=== PATIENT | male | born 1995 | race Hispanic/Latino ===

== ENCOUNTER 2020-12-27 17:37 | Emergency (ER) | payer SELFPAY ==
[2020-12-27 20:06] LABS: Absolute Lymphocytes (CBC) 3.9 K/uL (0.7-4.9); Basophils % 0.5 % (0-1.3); Hematocrit 46.7 % (39.6-49.0); Lymphocytes % 39.5 % (15.3-44.8); MPV 7.8 fL (7.6-11.3); RBC Red Blood Cell Count 5.47 M/uL (4.33-5.43)
[2020-12-27 20:13] LABS: BUN Blood Urea Nitrogen 17 mg/dL (7-18); Bicarbonate 29 mmol/L (21-32); Glucose Level 97 mg/dL (74-106); Lipase 110 U/L (73-393); Potassium 4.1 mmol/L (3.5-5.1); Sodium Level 143 mmol/L (136-145)
--- NOTE | 2020-12-27 20:21 | RAD REPORT ---
EXAM DESCRIPTION: CT - Head Brain Wo Cont - 12/27/2020 8:06 pm CLINICAL HISTORY: Headache COMPARISON: None. TECHNIQUE: Computed axial tomography of the head was obtained. IV contrast was not requested. All CT scans are performed using dose optimization technique as appropriate and may include automated exposure control or mA/KV adjustment according to patient size. FINDINGS: An intracranial bleed is not seen . The ventricles are normal in caliber. No extra-axial fluid collection is noted. 3 centimeter low-density areas present within the white matter of the right and left frontal lobes. A dditional low-density areas present within the subcortical white matter right frontal lobe. Fluid within the sinuses/ mastoids is not seen. IMPRESSION: Low-density areas within the right frontal lobes bilaterally. This could be a demyelinat ing process or inflammatory in nature. Posttraumatic is another consideration. It is recommended that the patient have an MRI with IV contrast for further evaluation
[2020-12-27] MEDS ORDERED: ONDANSETRON 4 MG/2 ML VIAL ONE (23:37)
[2020-12-27] MEDS ORDERED: MECLIZINE HCL 12.5 MG TAB ONE (23:37)
--- NOTE | 2020-12-27 23:59 | ER ---
Nurse's Notes [facility] Name: Terell Andre Age: 25 yrs Sex: Male : 1995 Arrival Date: 12/27/2020 Time: 17:55 Bed Treatment Private MD: Diagnosis: Headache;Dizziness and giddiness Presentation: 12/27 19:19 Chief complaint: Patient states: headache to right side of head that began 2 days ago. aa5 Pt denies recent illness. Pt reports nausea and vomiting blood. Also reports intermittent dizziness. 19:19 Coronavirus screen: headache, nausea, vomiting. Ebola Screen: Patient negative for aa5 fever greater than or equal to 101.5 degrees Fahrenheit, and additional compatible Ebola Virus Disease symptoms. Initial Sepsis Screen: Does the patient meet any 2 criteria? No. Patient's initial sepsis screen is negative. Does the patient have a suspected source of infection? No. Patient's initial sepsis screen is negative. Risk Assessment: Do you want to hurt yourself or someone else? Patient reports no desire to harm self or others. Onset of symptoms was 2020. 19:19 Method Of Arrival: Ambulatory aa5 19:19 Acuity: ANAND 3 aa5 Historical: - Allergies: 19:22 No Known Allergies; aa5 - Home Meds: 19:22 None [Active]; aa5 - PMHx: 19:22 None; aa5 - PSHx: 19:22 None; aa5 - Immunization history:: Client reports having NOT received the Covid vaccine. - Social history:: Smoking status: Patient reports the use of cigarette tobacco products, denies chronic smoking, but will smoke occasionally. Screenin/05 00:24 Abuse screen: Denies threats or abuse. Denies injuries from another. Nutritional lp1 screening: No deficits noted. Tuberculosis screening: No symptoms or risk factors identified. Fall Risk None identified. Assessment: 00:00 General: Appears in no apparent distress. Behavior is calm, cooperative. Pain: lp1 Complains of pain in head Pain currently is 1 out of 10 on a pain scale. Neuro: Level of Consciousness is awake, alert, obeys commands, Oriented to person, place, time, situation, Gait is steady, Speech is normal, Pupils are PERRLA, Intact Reports headache. Cardiovascular: Patient's skin is warm and dry. Respiratory: Respiratory effort is even, unlabored. GI: No signs and/or symptoms were reported involving the gastrointestinal system. : No signs and/or symptoms were reported regarding the genitourinary system. EENT: No signs and/or symptoms were reported regarding the EENT system. Derm: Skin is pink, warm \T\ dry. Musculoskeletal: No deficits noted. 00:23 Reassessment: Reports headache resolved, denies blurred vision. lp1 Vital Signs: 12/27 19:19 BP 130 / 84; Pulse 62; Resp 18 S; Temp 98.2(TE); Pulse Ox 98% on R/A; Weight 96.62 kg aa5 (R); Height 5 ft. 7 in. (170.18 cm) (R); Pain 5/10; 12/28 00:24 BP 130 / 86; Pulse 60; Resp 16; Pulse Ox 96% on R/A; Pain 1/10; lp1 12/27 19:19 Body Mass Index 33.36 (96.62 kg, 170.18 cm) aa5 ED Course: 12/27 17:55 Patient arrived in ED. mr 19:19 Arm band placed on. aa5 19:22 Triage completed. aa5 19:30 Inserted saline lock: 20 gauge in right antecubital area, using aseptic technique. mw2 Blood collected. 20:06 CT Head Brain wo Cont In Process Unspecified. EDMS 22:36 Tima Garcia PA is PHCP. cp 22:49 Nicole Stafford, MATEO is Primary Nurse. lp1 23:55 Vignesh Leung MD is Attending Physician. cp 23:57 Jean Ramos MD is Referral Physician. cp 12/28 00:24 Patient has correct armband on for positive identification. lp1 00:24 No provider procedures requiring assistance completed. IV discontinued, No lp1 redness/swelling at site. Pressure dressing applied. Administered Medications: 12/27 23:42 Drug: Meclizine 25 mg Route: PO; lp1 12/28 00:23 Follow up: Response: No adverse reaction lp1 00:16 Not Given (Patient Refused): Zofran (Ondansetron) 4 mg IVP once; over 2 minutes lp1 Outcome: 12/27 23:58 Discharge ordered by . cp 12/28 00:24 Discharged to home ambulatory. lp1 Condition: good Discharge instructions given to patient, Instructed on discharge instructions, follow up and referral plans. medication usage, Demonstrated understanding of instructions, follow-up care, medications, Prescriptions given X 4. 00:25 Patient left the ED. lp1 Signatures: Dispatcher [employer] Marilyn MoyaViviana, RN RN aa5 Nicole Stafford RN RN lp1 Tima Garcia PA PA cp [place], MyKena mw2 Corrections: (The following items were deleted from the chart) 12/27 19:23 19:19 Resp 18bpm; Spontaneous; Pulse Ox 98% RA; Temp 98.2F Temporal; aa5 aa5
--- NOTE | 2020-12-27 23:59 | EDPHYS ---
Physician Documentation [facility] Name: Terell Andre Age: 25 yrs Sex: Male : 1995 Arrival Date: 12/27/2020 Time: 17:55 Bed Treatment Private MD: ED Physician Vignesh Leung HPI: 12/27 22:45 This 25 yrs old Male presents to ER via Ambulatory with complaints of Headache.cp 22:45 The patient complains of pain to the right frontal area and right temporal area. The cp patient describes the headache as aching, waxing and waning. Onset: The symptoms/episode began/occurred 2 day(s) ago. Associated signs and symptoms: Pertinent positives: dizziness, nausea, vomiting, right eye blurry vision. Severity of symptoms: in the emergency department the pain has improved, moderately. Headache History: Denies prior headaches. Historical: - Allergies: 19:22 No Known Allergies; aa5 - Home Meds: 19:22 None [Active]; aa5 - PMHx: 19:22 None; aa5 - PSHx: 19:22 None; aa5 - Immunization history:: Client reports having NOT received the Covid vaccine. - Social history:: Smoking status: Patient reports the use of cigarette tobacco products, denies chronic smoking, but will smoke occasionally. ROS: 22:50 Constitutional: Negative for body aches, chills, fever, poor PO intake. cp 22:50 Respiratory: Negative for cough, shortness of breath, wheezing. cp 22:50 Eyes: Positive for blurry vision, of the right eye, Negative for discharge, pain, cp redness. 22:50 ENT: Negative for ear pain, sore throat, difficulty swallowing, difficulty handling secretions. 22:50 Neck: Negative for pain with movement, pain at rest, stiffness. 22:50 Cardiovascular: Negative for chest pain, edema, palpitations. 22:50 Abdomen/GI: Positive for nausea, vomiting, Negative for abdominal pain, diarrhea, constipation. 22:50 Skin: Negative for cellulitis, rash. 22:50 Neuro: Positive for dizziness, headache, Negative for altered mental status, numbness, syncope, weakness. 22:50 All other systems are negative. cp Exam: 22:55 Constitutional: The patient appears in no acute distress, alert, awake, cp non-diaphoretic, non-toxic, well developed, well nourished. 22:55 Head/Face: Normocephalic, atraumatic. cp 22:55 Eyes: Periorbital structures: appear normal, Pupils: equal, round, and reactive to light and accomodation, Extraocular movements: intact throughout, Conjunctiva: normal, no exudate, no injection, Sclera: no appreciated abnormality, Lids and lashes: appear normal, bilaterally. 22:55 ENT: External ear(s): are unremarkable, Ear canal(s): are normal, TM's: dullness, bilaterally, Nose: is normal, Mouth: Lips: moist, Oral mucosa: moist, Posterior pharynx: Airway: no evidence of obstruction, patent. 22:55 Neck: ROM/movement: is normal, is supple, without pain, no range of motions limitations, no nuchal rigidity. 22:55 Chest/axilla: Inspection: normal, Palpation: is normal, no crepitus, no tenderness. 22:55 Cardiovascular: Rate: normal, Rhythm: regular. 22:55 Respiratory: the patient does not display signs of respiratory distress, Respirations: normal, Breath sounds: are clear throughout, no decreased breath sounds, no stridor, no wheezing. 22:55 Abdomen/GI: Exam negative for discomfort, distension, guarding, Inspection: abdomen appears normal. 22:55 Neuro: Orientation: to person, place \T\ time. Mentation: is normal, Cerebellar function: Romberg testing is negative, normal finger to nose testing, Motor: moves all fours, strength is normal, Sensation: is normal, Gait: is steady, at a normal pace, without difficulty. Vital Signs: 19:19 BP 130 / 84; Pulse 62; Resp 18 S; Temp 98.2(TE); Pulse Ox 98% on R/A; Weight 96.62 kg aa5 (R); Height 5 ft. 7 in. (170.18 cm) (R); Pain 5/10; 12/28 00:24 BP 130 / 86; Pulse 60; Resp 16; Pulse Ox 96% on R/A; Pain 1/10; lp1 12/27 19:19 Body Mass Index 33.36 (96.62 kg, 170.18 cm) aa5 MDM: 12/27 22:37 Patient medically screened. cp 22:45 Differential diagnosis: meningitis, meningoencephalitis, migraine, neoplasm, sinusitis, cp tension headache. 23:30 Physician consultation: Jean Ramos MD was contacted at 23:15, regarding consult, cp patient's condition, and will see patient in office, next week, recommends RX for Topamax 25 mg qhs and diclofenac for headache pain. Reports patient does not need immediate MRI and can f/u in clinic. Patient to be instructed to return to ED worsening pain and/or symptoms. 23:57 Data reviewed: vital signs, nurses notes, lab test result(s), radiologic studies, CT cp scan, I have discussed the patient's presentation/case with the attending Emergency Department Physician; and as a result, I will discharge patient. 12/27 19:24 Order name: CBC with Diff aa 12/27 19:24 Order name: Basic Metabolic Panel aa 12/27 19:24 Order name: Lipase [facility] 12/27 19:25 Order name: CBC with Automated Diff; Complete Time: 22:49 EDMS 12/27 22:54 Interpretation: Normal except: RBC 5.47. cp 12/27 19:25 Order name: Basic Metabolic Panel; Complete Time: 22:49 EDMS 12/27 19:25 Order name: Lipase; Complete Time: 22:49 EDMS 12/27 19:23 Order name: CT Head Brain wo Cont; Complete Time: 22:49 aa5 12/27 20:46 Order name: SARS-COV-2 RT PCR; Complete Time: 22:49 EDMS Administered Medications: 23:42 Drug: Meclizine 25 mg Route: PO; lp1 12/28 00:23 Follow up: Response: No adverse reaction lp1 00:16 Not Given (Patient Refused): Zofran (Ondansetron) 4 mg IVP once; over 2 minutes lp1 Disposition: 00:00 Chart complete. cp 05:46 Co-signature as Attending Physician, Vignesh Leung MD. mh7 Disposition Summary: 12/27/20 23:58 Discharge Ordered Location: Home cp Problem: new cp Symptoms: have improved cp Condition: Stable cp Diagnosis - Headache cp - Dizziness and giddiness cp Followup: cp - With: Jean Ramos MD - When: 2 - 3 days - Reason: Recheck today's complaints Discharge Instructions: - Discharge Summary Sheet cp - Dizziness cp - Migraine Headache cp Forms: - Medication Reconciliation Form cp - Thank You Letter cp - Antibiotic Education cp - Prescription Opioid Use cp Prescriptions: - Topamax 25 mg Oral tablet - take 1 tablet by ORAL route At bedtime; 30 tablet; Refills: 0, Product cp Selection Permitted - Zofran 4 mg Oral Tablet - take 1 tablet by ORAL route every 12 hours As needed; 20 tablet; Refills: 0, cp Product Selection Permitted - Meclizine 25 mg Oral Tablet - take 1 tablet by ORAL route every 8 hours As needed; 30 tablet; Refills: 0, cp Product Selection Permitted - Diclofenac Sodium 75 mg Oral tablet,delayed release (DR/EC) - take 1 tablet by ORAL route 2 times per day; 20 tablet; Refills: 0, Product cp Selection Permitted Signatures: Dispatcher [employer] [facility] Viviana Le, RN RN aa5 Nicole Stafford RN RN lp1 Tima Garcia, PA PA cp Vignesh Leung MD MD [id number] Corrections: (The following items were deleted from the chart) 12/27 19:55 19:31 CORONAVIRUS+[id number] ordered. [facility] EDAZ 12/28 00:16 12/27 23:06 Visual Acuity ordered. cp lp1
[2020-12-28 00:39] VITALS: TEMP 98.2
[2020-12-28 00:41] VITALS: BP 130/86; O2SAT 96
== END 2020-12-28 00:25 | disposition home or self-care (01) ==
LOC: ER 17:37
DX: R42 Dizziness and giddiness (principal); F17.210 Nicotine dependence, cigarettes, uncomplicated; Z20.822 Contact with and (suspected) exposure to COVID-19
CPT/HCPCS: 36415; 70450; 80048; 83690; 85025; 99284; J2405; U0003